=== PATIENT | female | born 1985 | race Caucasian/White ===

== ENCOUNTER 2020-01-23 19:04 | Emergency (ER) | payer MEDICARE, OTHER ==
[~2020-01-23] VITALS: Ht 152.4 cm; Wt 65.0 kg
[2020-01-23 19:19] VITALS: BP 127/94
[2020-01-23] MEDS ORDERED: TETRACAINE 0.5% OPHTH SOLUTION 4ML BOTTLE. OD ONE (19:45)
[2020-01-23] MEDS ORDERED: FLUORESCEIN 1MG EYE STRIP. ONE (19:59)
[2020-01-23] MEDS ORDERED: GENT5DRO3 OD (20:33)
[2020-01-23] MEDS ORDERED: AMOX1TAB61 PO (20:33)
--- NOTE | 2020-01-23 20:33 | PHYS DOC ---
Past History Past Medical History: Other Additional Past Medical Histor: legally blind Past Surgical History: Other Additional Past Surgical Histo: tubes tied Smoking: Cigarettes Alcohol Use: None Drug Use: Marijuana Adult General Chief Complaint Chief Complaint: EYE PROBLEMS HPI HPI Patient is a 34-year-old female who presented to ER today for evaluation of right side eye pain that has been going on for several days. Patient felt like something is in her eye on the right side. Patient denies any fever, no blurry vision. Patient denies any headache. sHe denies any injury. Review of Systems Review of Systems All other ROS is negative unless otherwise noted in HPI Current Medications Current Medications Current Medications Medications (Trade) Dose Ordered Sig/Erwin Start Time Stop Time Status Last Admin Dose Admin Fluorescein Sodium (Ful-Rosemary 1mg) 1 strip STK-MED ONCE 01/23/20 19:59 01/23/20 20:00 DC Tetracaine HCl (Tetracaine) 1 drop 1X ONCE 01/23/20 19:45 01/23/20 19:46 DC 01/23/20 19:45 1 DROP Allergies Allergies Allergies Coded Allergies Type Severity Reaction Last Updated Verified No Known Drug Allergies 01/14/14 No Physical Exam Physical Exam See above Constitutional: Well developed, well nourished, no acute distress, non-toxic appearance. [] HENT: Normocephalic, atraumatic, bilateral external ears normal, oropharynx moist, no oral exudates, nose normal. [] Eyes: PERRLA, EOMI, conjunctiva injected on the right side, no cornea abrasion, no dye uptake on the wood lamp exam, no discharge. There is erythema around right periorbital area, there is no eye pain with eye movement. No hyphema. Neck: Normal range of motion, no tenderness, supple, no stridor. [] Cardiovascular:Heart rate regular rhythm, no murmur [] Lungs & Thorax: Bilateral breath sounds clear to auscultation [] Abdomen: Bowel sounds normal, soft, no tenderness, no masses, no pulsatile masses. [] Skin: Warm, dry, no erythema, no rash. [] Back: No tenderness, no CVA tenderness. [] Extremities: No tenderness, no cyanosis, no clubbing, ROM intact, no edema. [] Neurologic: Alert and oriented X 3, normal motor function, normal sensory function, no focal deficits noted. [] Psychologic: Affect normal, judgement normal, mood normal. [] Current Patient Data Vital Signs Vital Signs Date Time Temp Pulse Resp B/P (MAP) Pulse Ox O2 Delivery O2 Flow Rate FiO2 01/23/20 19:19 98.1 86 18 127/94 (105) 97 Room Air EKG EKG [] Radiology/Procedures Radiology/Procedures [] Course & Med Decision Making Course & Med Decision Making Pertinent Labs and Imaging studies reviewed. (See chart for details) Patient is a 34-year-old female who was seen in the ER today due to right eye irritation, there is no dye uptake on wood lamp exam, no cornea abrasion. However she had injected conjunctivae on the right side. sHe also has erythema and inflammation around periOrbital area on the right side consistent with periorbital cellulitis. There is no eye pain with muscle movement. Patient had good visual acuity, she will be discharged home with antibiotic eye drop and orally. Dragon Disclaimer Dragon Disclaimer This electronic medical record was generated, in whole or in part, using a voice recognition dictation system. Departure Departure: Impression: Primary Impression: Conjunctivitis Additional Impression: Periorbital cellulitis of right eye Disposition: HOME, SELF-CARE Condition: STABLE Referrals: PCP,NO (PCP) follow up with your PCP this week Patient Instructions: Bacterial Conjunctivitis, Periorbital Cellulitis Scripts Gentamicin Sulfate (GENTAK) 5 Ml Drops 2 DROP OD QID for conjunctivitis for 5 Days, #5 ML 0 Refills Prov: KAILYN WALSH DO 01/23/20 Amoxicillin/Potassium Clav (AUGMENTIN 875-125 TABLET) 1 Each Tablet 1 TAB PO BID for periorbital cellulitis for 10 Days, #20 TAB 0 Refills Prov: KAILYN WALSH DO 01/23/20 Problem Qualifiers KAILYN WALSH DO Jan 23, 2020 20:33
== END 2020-01-23 20:51 | disposition home or self-care (01) ==
LOC: ER 19:04
DX: H10.9 Unspecified conjunctivitis (principal); L03.213 Periorbital cellulitis; F17.210 Nicotine dependence, cigarettes, uncomplicated
CPT/HCPCS: 99283